=== PATIENT | male | born 1985 | race African-American/Black ===

== ENCOUNTER 2023-05-15 21:26 | Emergency (ER) | payer MEDICAID ==
[~2023-05-15] VITALS: Ht 175.3 cm; Wt 92.0 kg
[2023-05-15 21:42] VITALS: BP 111/74; PULSE 83; RESP 14; TEMP 98.5; O2SAT 100
[2023-05-16] MEDS ORDERED: NEOM28.37 TP (03:15)
[2023-05-16] MEDS ORDERED: CEPH500C2 MT (03:15)
[2023-05-16] MEDS ORDERED: SLS TP (03:15)
== END 2023-05-16 04:00 | disposition home or self-care (01) ==
LOC: ER 21:26
DX: F03.90 Unspecified dementia, unspecified severity, without behavioral disturbance, psychotic disturbance, mood disturbance, and anxiety (principal); J45.909 Unspecified asthma, uncomplicated
CPT/HCPCS: 99283

== ENCOUNTER 2023-12-16 12:59 | Emergency (ER) | payer MEDICAID ==
[~2023-12-16] VITALS: Ht 180.3 cm; Wt 102.0 kg
[~2023-12-16 12:59] MED LIST: CEPH500C2 MT; NEOM28.37 TP; SLS TP
[2023-12-16 13:45] VITALS: TEMP 98.2
[2023-12-16] MEDS ORDERED: NALOXONE HCL 0.4MG/ML 1ML VIAL IV PRN (13:45)
[2023-12-16] MEDS: SODIUM CHLORIDE 0.9% 1,000 ML IV ONE (14:00)
[2023-12-16 14:51] LABS: BASOPHILS % 0.5 % (0.0-2.0); EOSINOPHILS % 0.9 % (0.0-5.0); HEMATOCRIT. 45.5 % (42.0-52.0); HEMOGLOBIN. 15.3 g/dL (14.0-18.0); LYMPHOCYTES % 13.9 % (20.0-50.0); MEAN CORPUSCULAR HEMOGLOBIN 29.5 pg (28.0-32.0); MEAN CORPUSCULAR HGB CONC 33.7 g/dL (31.0-37.0); MEAN CORPUSCULAR VOLUME 87.6 fL (80.0-94.0); MEAN PLATELET VOLUME 8.1 fl (7.4-10.4); NEUTROPHILS % 80.7 % (40.0-76.0); PLATELET 309 x1000/uL (130-400); RED CELL DISTRIBUTION WIDTH 13.2 % (11.6-14.6); WHITE BLOOD COUNT 8.2 x1000/uL (4.5-11.0)
[2023-12-16 15:03] LABS: CHLORIDE 106 mEq/L (98-107); POTASSIUM 4.6 mEq/L (3.5-5.1); SODIUM 142 mEq/L (136-145)
[2023-12-16 15:04] LABS: CALCIUM 10.5 mg/dL (8.7-10.4); CARBON DIOXIDE 28 mEq/L (21-32)
[2023-12-16 15:09] LABS: CREATININE 1.7 mg/dL (0.6-1.3); GLUCOSE 89 mg/dL (70-105); UREA NITROGEN BLOOD 14 mg/dL (9-23)
[2023-12-16 15:11] LABS: ACETAMINOPHEN < 2 ug/mL (10-30); ALANINE AMINOTRANSFERASE 22 IU/L (10-49); ALBUMIN 4.9 g/dL (3.2-4.8); ASPARTATE AMINOTRANSFERASE 32 IU/L (<34); BILIRUBIN DIRECT 0.2 mg/dL (<=3.0); BILIRUBIN TOTAL 0.8 mg/dL (0.1-1.0)
[2023-12-16 15:12] LABS: PROTEIN TOTAL 8.1 g/dL (6.0-8.3)
[2023-12-16 15:13] LABS: ETHANOL BLOOD < 10 mg/dL (<10)
[2023-12-16 16:15] VITALS: O2SAT 98
[2023-12-16 16:24] VITALS: BP 145/87; PULSE 76; RESP 17
== END 2023-12-16 17:34 | disposition left against medical advice (07) ==
LOC: ER 14:07
DX: R40.20 Unspecified coma (principal); F41.9 Anxiety disorder, unspecified; J45.909 Unspecified asthma, uncomplicated; Z98.890 Other specified postprocedural states
CPT/HCPCS: 80076; 80048; 80307; 80329; 80320; 85025; 36415; 96360; 99291; J7030; Z7610; G0480